=== PATIENT | female | born 1930 | race Hispanic/Latino ===

== ENCOUNTER 2019-12-05 01:12 | Emergency (ER) | payer OTHER ==
[~2019-12-05] VITALS: Ht 157.5 cm; Wt 62.6 kg
--- OUTSIDE RECORDS SUMMARY | 2019-12-05 01:39 | XMS REPORT | Continuity of Care Document ---
Author Author [facility] Address [address] [place] [address] Phone Unavailable Care Team Providers Care Senior Clinician Name Role Phone Unavailable Unavailable Payers Payer Name Policy Type Policy Number Effective Date Expiration Date S ource Problems This patient has no known problems. Allergies, Adverse Reactions, Alerts Allergy Name Allergy Type Status Severity Reaction(s) Onset Date Inacti ve Date Treating Clinician Comments Source No Known Contrast Allergies DA Active U 2001-12-21 00:00: [address] [facility] No Known Drug Allergies DA Active U 2001-12-21 00:00:[address] [facility] No Known Food Allergies DA Active U 2001-12-21 00:00:[address] [facility] No Known Other Allergies DA Active U 2001-12-21 00:00:[address] [facility] Medications This patient has no known medications. Procedures This patient has no known procedures. Results Test Description Test Time Test Comments Results Result Comments Source - XR ABDOMEN AP 1 V 2018-07-25 12:23:00 FAX: Arjun Nicholson MD [phone] [place]: O St: REG -- Name: [facility] : 1930 Age/S: 87/F [address] Unit #: [id number] Loc: [place] [address] Phys: Arjun Bonner MD Acct: [id number] Dis Date: Status: REG CLI PHONE #: [phone] Exam Date: 07/25/2018 1143 FAX #: [phone] Reason: R10.9 EXAMS: CPT CODE: [id number] XR ABDOMEN AP 1 V 50315 HISTORY: R10.9. COMPARISON: None available. No bowel obstruction. Scattered fecal material. No pathologic calcifications. IMPRESSION: No bowel obstruction. Scattered fecal material. at 1223 Reported and signed by: Martni Hughes M.D. CC: Arjun Bonner MD Technologist: IRAJ DIMAS (R) Trnscrd Date/Time/By: 07/25/2018 (8109) : By: [email or web address] Orig Print D/T: S: 07/25/2018 (9723) PAGE 1 Signed Report - XR CHEST 2 V 2018-07-25 12:04:00 FAX: Arjun Nicholson MD [phone] [place]: O St: REG -- Name: [facility] : 1930 Age/S: 87/F [address] Unit #: [id number] Loc: [place] [address] Phys: Arjun Bonner MD Acct: [id number] Dis Date: Status: REG CLI PHONE #: [phone] Exam Date: 07/25/2018 1140 FAX #: [phone] Reason: R07.9 EXAMS: CPT CODE: [id number] XR CHEST 2 V 85079 HISTORY: R07.9 COMPARISON: None available. AP and lateral view of the chest: No acute infiltrates, effusion or congestion. COPD. Bullous changes in the upper lobes. Cardiac and the mediastinal silhouette are normal. IMPRESSION: No acute infiltrates, effusion or congestion. COPD. at 1204 Reported and signed by: Martin Hughes M.D. CC: Arjun Bonner MD Technologist: IRAJ DIMAS (R) Trnscrd Date/Time/By: 07/25/2018 (5501) : By: [email or web address] Orig Print D/T: S: 07/25/2018 (7578) PAGE 1 Signed Report
[2019-12-05 02:15] LABS: CLARITY,URINE SL CLOUDY (CLEAR); COLOR,URINE YELLOW (YELLOW); KETONES,URINE NEGATIVE (NEGATIVE); LEUKOCYTE ESTERASE ,URINE TRACE (NEGATIVE); NITRITE,URINE POSITIVE (NEGATIVE); PHENCYCLIDINE SCREEN,URINE NEGATIVE (NEGATIVE); PROTEIN,URINE DIPSTICK NEGATIVE (NEGATIVE)
[2019-12-05 02:16] LABS: AMPHETAMINES SCREEN,URINE NEGATIVE (NEGATIVE); BENZODIAZEPINES SCREEN,URINE NEGATIVE (NEGATIVE); BILIRUBIN,URINE NEGATIVE (NEGATIVE); URINE UROBILINOGEN 0.2 mg/dL (0.2 - 1)
--- NOTE | 2019-12-05 02:16 | NUR ---
[address]
--- NOTE | 2019-12-05 02:16 | NUR ---
all si/hi precautions are in place
[2019-12-05 02:20] LABS: BACTERIA,URINE MANY /HPF; EPITHELIAL CELLS,URINE FEW /LPF; RBC,URINE 0-5 /HPF (0-5)
--- NOTE | 2019-12-05 02:25 | Emergency Department Note ---
History of Present Illnes History of Present Illness Chief Complaint: Psychiatric History of Present Illness This is a 89 year old female PRESENTS TO ED VIA EMS AND [facility] WITH REPORT OF HOMICIDAL IDEATION; PD REPORTS PT ALLEGEDLY HAD KNIFE AND PAIR OF SCISSORS AND WAS THREATENING FAMILY AT PTS RESIDENCE; V/S/S; PTS DAUGHTER, SONIA, CALLED AND STATED THAT PT HAS BEEN ALTERED AND HALLUCINATING X3 WEEKS AND REFUSING TO TAKE MEDICATIONS. Historian: Patient, Family Member Arrival Mode: Car Onset (how long ago): week(s) (3) Location: NONE Quality: AGITATED, DELUSIONS, HOMICIDAL IDEATIONS Severity: moderate Onset quality: gradual Duration (how long): week(s) (3) Progression: worsening Chronicity: new Context: Denies recent illness, Denies recent surgery Relieving factors: none Exacerbating factors: none Associated symptoms: Reports denies other symptoms Treatments prior to arrival: none Past Medical/Family History Physician Review I have reviewed the patient's past medical and family history. Any updates have been documented here. Past Medical History Recent Fever: No Clinical Suspicion of Infectio: No New/Unexplained Change in Ment: No Past Medical History: Hypertension, Diabetes, Hyperlipedemia Other Medical History: arthritis Past Surgical History: Other Surgery: benign lump removal Social History Smoking Cessation: Never Smoker Counseling Performed: No Alcohol Use: None Any Illegal Drug Use: No Review of Systems Review of Systems Constitutional: Reports no symptoms EENTM: Reports no symptoms Cardiovascular: Reports no symptoms Respiratory: Reports no symptoms Gastrointestinal: Reports no symptoms Genitourinary: Reports no symptoms Musculoskeletal: Reports no symptoms Integumentary: Reports no symptoms Neurological: Reports no symptoms Psychological: Reports as per HPI Endocrine: Reports no symptoms Hematological/Lymphatic: Reports no symptoms Physical Exam Related Data Triage Vital Signs Vital Signs Date Time Temp Pulse Resp B/P (MAP) Pulse Ox O2 Delivery O2 Flow Rate FiO2 12/05/19 01:56 99.1 79 17 164/74 97 Room Air Physical Exam CONSTITUTIONAL Constitutional: Present well-developed, Present well-nourished, Present other (PT MANIC IN APPEARANCE) HENT HENT: Present normocephalic, Present atraumatic, Present oropharynx clear/moist, Present nose normal HENT L/R: Present left ext ear normal, Present right ext ear normal EYES Eyes: Reports PERRL, Reports conjunctivae normal NECK Neck: Present ROM normal PULMONARY Pulmonary: Present effort normal, Present breath sounds normal CARDIOVASCULAR Cardiovascular: Present regular rhythm, Present heart sounds normal, Present capillary refill normal, Present normal rate GASTROINTESTINAL Abdominal: Present soft, Present nontender, Present bowel sounds normal GENITOURINARY Genitourinary: Present exam deferred SKIN Skin: Present warm, Present dry MUSCULOSKELETAL Musculoskeletal: Present ROM normal NEUROLOGICAL Neurological: Present alert, Present oriented x 3, Present no gross motor or sensory deficits PSYCHOLOGICAL Psychological: Present other (PT MANIC, DELUSIONAL, HOMICIDAL) Results Laboratory Laboratory Laboratory Tests Test 12/05/19 01:45 White Blood Count 6.31 x10e3/uL (4.8-10.8) Red Blood Count 3.78 x10e6/uL (3.6-5.1) Hemoglobin 10.9 g/dL (12.0-16.0) Hematocrit 34.9 % (34.2-44.1) Mean Corpuscular Volume 92.3 fL (81-99) Mean Corpuscular Hemoglobin 28.8 pg (28-32) Mean Corpuscular Hemoglobin Concent 31.2 g/dL (31-35) Red Cell Distribution Width 13.0 % (11.7-14.4) Platelet Count 233 x10e3/uL (140-360) Neutrophils (%) (Auto) 57.0 % (38.7-80.0) Lymphocytes (%) (Auto) 28.4 % (18.0-39.1) Monocytes (%) (Auto) 8.9 % (4.4-11.3) Eosinophils (%) (Auto) 4.1 % (0.0-6.0) Basophils (%) (Auto) 0.6 % (0.0-1.0) Neutrophils # (Auto) 3.6 (2.1-6.9) Lymphocytes # (Auto) 1.8 (1.0-3.2) Monocytes # (Auto) 0.6 (0.2-0.8) Eosinophils # (Auto) 0.3 (0.0-0.4) Basophils # (Auto) 0.0 (0.0-0.1) Absolute Immature Granulocyte (auto 0.06 x10e3/uL (0-0.1) Urine Color Yellow (YELLOW) Urine Clarity Sl cloudy (CLEAR) Urine pH 6.5 (5 - 7) Urine Specific [place] 1.020 (1.010-1.025) Urine Protein Negative (NEGATIVE) Urine Glucose (UA) 2+ (NEGATIVE) Urine Ketones Negative (NEGATIVE) Urine Blood Trace (NEGATIVE) Urine Nitrite Positive (NEGATIVE) Urine Bilirubin Negative (NEGATIVE) Urine Urobilinogen 0.2 mg/dL (0.2 - 1) Urine Leukocyte Esterase Trace (NEGATIVE) Urine RBC 0-5 /HPF (0-5) Urine WBC 6-10 /HPF (0-5) Urine Epithelial Cells Few /LPF (NONE) Urine Bacteria Many /HPF (NONE) Sodium Level 140 mmol/L (136-145) Potassium Level 3.8 mmol/L (3.5-5.1) Chloride Level 101 mmol/L (98-107) Carbon Dioxide Level 28 mmol/L (22-29) Anion Gap 14.8 mmol/L (8-16) Blood Urea Nitrogen 19 mg/dL (7-26) Creatinine 1.04 mg/dL (0.57-1.11) Estimat Glomerular Filtration Rate 50 ML/MIN (60-) BUN/Creatinine Ratio 18 (6-25) Glucose Level 216 mg/dL (74-118) Calcium Level 9.7 mg/dL (8.4-10.2) Total Bilirubin 0.3 mg/dL (0.2-1.2) Aspartate Amino Transf (AST/SGOT) 16 IU/L (5-34) Alanine Aminotransferase (ALT/SGPT) 13 IU/L (0-55) Alkaline Phosphatase 99 IU/L (40-150) Creatine Kinase 100 IU/L (29-168) Creatine Kinase MB 0.80 ng/mL (0-5.0) Troponin I < 0.001 ng/mL (0-0.300) Total Protein 7.3 g/dL (6.5-8.1) Albumin 4.1 g/dL (3.5-5.0) Globulin 3.2 g/dL (2.3-3.5) Albumin/Globulin Ratio 1.3 (0.8-2.0) Salicylates Level < 5.0 mg/dL (0-30) Urine Opiates Screen Negative (NEGATIVE) Urine Methadone Screen Negative (NEGATIVE) Acetaminophen Level < 3.0 ug/mL (10-30) Urine Barbiturates Screen Negative (NEGATIVE) Urine Phencyclidine Screen Negative (NEGATIVE) Urine Amphetamines Screen Negative (NEGATIVE) Urine Methamphetamines Screen Negative (NEGATIVE) Urine Benzodiazepines Screen Negative (NEGATIVE) Urine Cocaine Screen Negative (NEGATIVE) Urine Cannabinoids Screen Negative (NEGATIVE) Ethyl Alcohol Level < 10.0 mg/dL (0.0-10.0) Laboratory Tests Test 12/05/19 01:45 Urine Color Yellow (YELLOW) Urine Clarity Sl cloudy (CLEAR) Urine pH 6.5 (5 - 7) Urine Specific [place] 1.020 (1.010-1.025) Urine Protein Negative (NEGATIVE) Urine Glucose (UA) 2+ (NEGATIVE) Urine Ketones Negative (NEGATIVE) Urine Blood Trace (NEGATIVE) Urine Nitrite Positive (NEGATIVE) Urine Bilirubin Negative (NEGATIVE) Urine Urobilinogen 0.2 mg/dL (0.2 - 1) Urine Leukocyte Esterase Trace (NEGATIVE) Urine Opiates Screen Negative (NEGATIVE) Urine Methadone Screen Negative (NEGATIVE) Urine Barbiturates Screen Negative (NEGATIVE) Urine Phencyclidine Screen Negative (NEGATIVE) Urine Amphetamines Screen Negative (NEGATIVE) Urine Methamphetamines Screen Negative (NEGATIVE) Urine Benzodiazepines Screen Negative (NEGATIVE) Urine Cocaine Screen Negative (NEGATIVE) Urine Cannabinoids Screen Negative (NEGATIVE) Lab results reviewed: Yes Imaging Imaging results reviewed: Yes Impressions CT BRAIN WO HISTORY: Altered mental status COMPARISON: None. Technique: Noncontrast axial scans were obtained from skull base to the vertex. Coronal and sagittal reconstructions obtained from the axial data. One or more of the following dose reduction techniques were used: Automated exposure control, adjustment of the mA and/or kV according to patient size, and/or utilization of iterative reconstruction technique. Beam hardening artifacts obscure some details. DISCUSSION: Scalp/Skull: Unremarkable. Brain sulci: Mildly prominent. Ventricles: Compensatory dilatation. Extra-axial spaces: No masses or fluid collections. Carotid siphon calcifications are present. Parenchyma: Mild to moderate bilateral deep white matter hypodensity is likely chronic microvascular ischemic change. There is an old small cortical infarct in the left posterior cerebellum. Old lacunar infarcts are also seen in the right caudate head and right anterior thalamus. Otherwise, no masses, hemorrhage, or large vascular territory acute infarct. Dural sinuses: No abnormal densities. Sellar/Suprasellar region: Intact. Skull base: Intact. Incidental findings: Partially imaged left maxillary sinus opacification. IMPRESSION: 1. No acute intracranial abnormalities. 2. Mild to moderate supratentorial chronic microvascular ischemic change. 3. 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 4. 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 5. Mild generalized cerebral volume loss. Signed by: Dr. Manfred Landers M.D. on 12/05/2019 2:57 AM Dictated By: MANFRED LNADERS MD 6 Transcribed By: RON on 12/05/19256 COPY TO: JU MALAVE MD~ EXAMINATION: CHEST SINGLE (PORTABLE) INDICATION: AMS COMPARISON: None FINDINGS: TUBES and LINES: None. LUNGS: Normal lung volumes. Lungs are clear. No consolidations. PLEURA: No pleural effusion or pneumothorax. HEART AND MEDIASTINUM: The cardiomediastinal silhouette is unremarkable. BONES AND SOFT TISSUES: No acute osseous lesion. Soft tissues are unremarkable. UPPER ABDOMEN: No free air under the diaphragm. IMPRESSION: No acute thoracic radiographic abnormality. Signed by: Montana Vargas MD on 12/05/2019 3:30 AM Dictated By: MONTANA VARGAS MD 9 Transcribed By: RON on 12/05/19329 COPY TO: JU MALAVE MD~ Assessment & Plan Medical Decision Making [facility] PT MANIC, DELUSIONAL, HOMICIDAL, PULLED KNIFE ON FAMILY TONIGHT CBC, CMP, CT BRAIN, UA, UDS, TYLENOL LEVEL, ASPIRIN LEVEL, ETOH ORDERED TO EVAL FOR ORGANIC CAUSES OF PT'S CURRENT MENTAL STATE AND FOR CLEARANCE FOR PSYCHIATRIC PLACEMENT 0350 PT CLEARED MEDICALLY FOR PSYCH PLACEMENT , MAT TEAM CALLED. Assessment & Plan Final Impression: (1) UTI (urinary tract infection) (2) Homicidal ideation (3) Heydi (4) Delusion Depart Disposition: XFER TO PSYCH HOSP/UNIT Last Vital Signs Date Time Temp Pulse Resp B/P (MAP) Pulse Ox O2 Delivery O2 Flow Rate FiO2 12/05/19 01:56 99.1 79 17 164/74 97 Room Air JU MALAVE MD Dec 05, 2019 02:25
[2019-12-05 02:54] LABS: BASOPHILS % 0.6 % (0.0-1.0); EOSINOPHILS # (AUTO) 0.3 (0.0-0.4); EOSINOPHILS % 4.1 % (0.0-6.0); HEMATOCRIT 34.9 % (34.2-44.1); HEMOGLOBIN 10.9 g/dL (12.0-16.0); LYMPHOCYTES # (AUTO) 1.8 (1.0-3.2); LYMPHOCYTES % 28.4 % (18.0-39.1); MEAN CORPUSCULAR HEMOGLOBIN 28.8 pg (28-32); MEAN CORPUSCULAR HGB CONC 31.2 g/dL (31-35); MEAN CORPUSCULAR VOLUME 92.3 fL (81-99); MONOCYTES # (AUTO) 0.6 (0.2-0.8); MONOCYTES % 8.9 % (4.4-11.3); NEUTROPHILS # (AUTO) 3.6 (2.1-6.9); PLATELET COUNT 233 x10e3/uL (140-360); RED BLOOD COUNT 3.78 x10e6/uL (3.6-5.1)
[2019-12-05] MEDS ORDERED: CEFTRIAXONE SOD 1 GM/NS 50 ML 50 ML IV ONE (03:00)
--- NOTE | 2019-12-05 03:00 | Diagnostic Imaging Report ---
CT BRAIN WO HISTORY: Altered mental status COMPARISON: None. Technique: Noncontrast axial scans were obtained from skull base to the vertex. Coronal and sagittal reconstructions obtained from the axial data. One or more of the following dose reduction techniques were used: Automated exposure control, adjustment of the mA and/or kV according to patient size, and/or utilization of iterative reconstruction technique. Beam hardening artifacts obscure some details. DISCUSSION: Scalp/Skull: Unremarkable. Brain sulci: Mildly prominent. Ventricles: Compensatory dilatation. Extra-axial spaces: No masses or fluid collections. Carotid siphon calcifications are present. Parenchyma: Mild to moderate bilateral deep white matter hypodensity is likely chronic microvascular ischemic change. There is an old small cortical infarct in the left posterior cerebellum. Old lacunar infarcts are also seen in the right caudate head and right anterior thalamus. Otherwise, no masses, hemorrhage, or large vascular territory acute infarct. Dural sinuses: No abnormal densities. Sellar/Suprasellar region: Intact. Skull base: Intact. Incidental findings: Partially imaged left maxillary sinus opacification. IMPRESSION: 1. No acute intracranial abnormalities. 2. Mild to moderate supratentorial chronic microvascular ischemic change. 3. 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 4. 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 5. Mild generalized cerebral volume loss. Signed by: Dr. Manfred Landers M.D. on 12/05/2019 2:57 AM
[2019-12-05 03:11] LABS: ALANINE AMINOTRANSFERASE 13 IU/L (0-55); ALBUMIN 4.1 g/dL (3.5-5.0); ALBUMIN/GLOBULIN RATIO 1.3 (0.8-2.0); ALKALINE PHOSPHATASE 99 IU/L (40-150); ANION GAP 14.8 mmol/L (8-16); BLOOD UREA NITROGEN 19 mg/dL (7-26); BUN/CREATININE RATIO 18 (6-25); CALCIUM 9.7 mg/dL (8.4-10.2); CARBON DIOXIDE 28 mmol/L (22-29); CHLORIDE 101 mmol/L (98-107); CREATINE KINASE 100 IU/L (29-168); CREATININE, SERUM 1.04 mg/dL (0.57-1.11); EST GLOMERULAR FILTRATION RATE 50 ML/MIN (60-); GLUCOSE 216 mg/dL (74-118); POTASSIUM 3.8 mmol/L (3.5-5.1); SODIUM 140 mmol/L (136-145)
[2019-12-05 03:12] LABS: SALICYLATE < 5.0 mg/dL (0-30)
--- NOTE | 2019-12-05 03:33 | Diagnostic Imaging Report ---
EXAMINATION: CHEST SINGLE (PORTABLE) INDICATION: AMS COMPARISON: None FINDINGS: TUBES and LINES: None. LUNGS: Normal lung volumes. Lungs are clear. No consolidations. PLEURA: No pleural effusion or pneumothorax. HEART AND MEDIASTINUM: The cardiomediastinal silhouette is unremarkable. BONES AND SOFT TISSUES: No acute osseous lesion. Soft tissues are unremarkable. UPPER ABDOMEN: No free air under the diaphragm. IMPRESSION: No acute thoracic radiographic abnormality. Signed by: Cheng Teran MD on 12/05/2019 3:30 AM
--- NOTE | 2019-12-05 03:57 | NUR ---
MAT called per md request to arrange for pt eval.
--- NOTE | 2019-12-05 07:11 | NUR ---
report given to kirill edwards
--- NOTE | 2019-12-05 07:12 | NUR ---
received report from off going nurse with walking rounds. patient in room in bed, awake and alert. no s/s of acute distress. polite demeanor. 1:1 sitter at bedside. no c/o pain at this time. Pending arrival of MAT team for assessment.
[2019-12-05] MEDS ORDERED: GLIPIZIDE10 MG PO (07:22)
[2019-12-05] MEDS ORDERED: ATORVASTATIN CA10 MG PO (07:22)
[2019-12-05] MEDS ORDERED: LOSARTAN POTASS50 MG PO (07:22)
[2019-12-05] MEDS ORDERED: CARVEDILOL25 MG PO (07:22)
[2019-12-05] MEDS ORDERED: METFORMIN HCL850 MG PO (07:22)
[2019-12-05] MEDS ORDERED: QUETIAPINE FUMA25 MG PO (07:22)
[2019-12-05] MEDS ORDERED: DEXTROSE 50% SYRINGE 50 ML IV PRN (07:30)
--- NOTE | 2019-12-05 08:29 | NUR ---
MAT TEAM HERE TO SEE PATIENT
[2019-12-05] MEDS ORDERED: NON-FORMULARY MEDICATION (Losartan Potassium 50 MG) PO SCH (09:00)
[2019-12-05] MEDS ORDERED: NON-FORMULARY MEDICATION (Carvedilol 25 MG) PO SCH (09:00)
[2019-12-05] MEDS: INSULIN LISPRO 100 UNIT/1 ML 3ML VIAL SQ SCH ×4 (10:09→22:09)
[2019-12-05] MEDS: METFORMIN HCL 850 MG TAB PO SCH ×2 (10:10→17:48)
[2019-12-05] MEDS: QUETIAPINE FUMARATE 25 MG TAB PO SCH ×2 (10:10→17:48)
[2019-12-05] MEDS: CARVEDILOL 12.5 MG TAB PO SCH ×2 (10:10→17:48)
[2019-12-05] MEDS: LOSARTAN POTASSIUM 25 MG TAB PO SCH ×2 (10:12→17:48)
--- NOTE | 2019-12-05 14:22 | NUR ---
NURSE TO NURSE COMPLETED
--- NOTE | 2019-12-05 14:35 | NUR ---
DOCTOR TO DOCTOR COMPLETED. RECEIVED ADMIN APPROVAL FROM JASON WAKEFIELD.
[2019-12-05] MEDS ORDERED: CEFTRIAXONE SOD 1 GM/NS 50 ML 50 ML IV SCH (15:00)
--- NOTE | 2019-12-05 18:55 | NUR ---
PATIENT STATING SHE IS SHORT OF BREATH AND FEELS LIKE SHE IS ABOUT TO PASS OUT. CONNECTED TO BEDSIDE MONITOR. VSS. ER MD IN ROOM TO SEE PATIENT. PATIENT BEGAN TO CALM DOWN AFTER SEEING ER MD.
--- NOTE | 2019-12-05 19:00 | NUR ---
RECEIVED REPORT FROM Rodney WORKMAN LVN DAY SHIFT NURSE.
--- NOTE | 2019-12-05 20:52 | NUR ---
SPOKE WITH LUCI BUCK WITH [facility] [phone]. WAS TOLD PT HAS AN OPEN CASE FOR PT.
--- NOTE | 2019-12-05 23:03 | NUR ---
PT IS LAYING IN STRETCHER SLEEPING. V/S/S. BED IS LOCKED AND IN LOWEST POSITION. SITTER AT BEDSIDE.
--- NOTE | 2019-12-06 02:41 | NUR ---
[facility] CALLED AT THIS TIME. ETA 45 MINUTES.
== END 2019-12-06 03:47 ==
LOC: ER 01:36
DX: R45.850 Homicidal ideations (principal); F30.9 Manic episode, unspecified; F22 Delusional disorders; N39.0 Urinary tract infection, site not specified
CPT/HCPCS: 36415; 70450; 71045; 80053; 80307; 80320; 80329 ×2; 81001; 82550; 82553; 82948; 84484; 85025; 99285; J0696